=== PATIENT | female | born 1980 | race African-American/Black ===

== ENCOUNTER → 2019-01-29 | Outpatient (CLI) | payer BC ==
--- NOTE | 2019-01-29 15:26 | Diagnostic Imaging Report ---
PATIENT HISTORY: PAIN OF LEFT HEEL. TECHNIQUE: Two views of the left calcaneus. COMPARISON: None. FINDINGS: There is a small plantar calcaneal enthesophyte. No acute fracture is seen in the calcaneus. No erosive changes are seen. Joint spaces are preserved and alignment appears normal. IMPRESSION: Small plantar calcaneal enthesophyte. Dictated by: Dictated on workstation # [id number]
== END ==
LOC: RAD 11:15
PROVIDERS: ATTEND Pediatrics
DX: M77.32 Calcaneal spur, left foot (principal)
CPT/HCPCS: 73650

== ENCOUNTER 2019-08-13 17:21 | Emergency (ER) | payer SELFPAY ==
[~2019-08-13] VITALS: Ht 165 cm; Wt 68.4 kg
[2019-08-13] MEDS ORDERED: ONDANSETRON 4 MG/2 ML (SDV) Z0FRAN ONE (17:27)
[2019-08-13] MEDS ORDERED: NS IV 1000 ML 1,000 ML ONE (17:27)
--- OUTSIDE RECORDS SUMMARY | 2019-08-13 17:27 | XMS REPORT | Continuity of Care Document ---
Author Organization Unknown Address Unknown Phone Unavailable Allergies There is no data. Medications There is no data. Problems Date Dx Coded Attending Type Code Diagnosis Diagnosed By 02/03/2019 DOMONIQUE TAPIA MD, Ot M77.32 CALCANEAL SPUR, LEFT FOOT 02/10/2019 DOMONIQUE TAPIA MD, Ot M77.32 CALCANEAL SPUR, LEFT FOOT 02/17/2019 DOMONIQUE TAPIA MD, Ot M77.32 CALCANEAL SPUR, LEFT FOOT Procedures There is no data. Results Test Result Range CMP - 07/17/18 09:20 GLUCOSE 82 mg/dL 65-99 UREA NITROGEN (BUN) 16 mg/dL 7-25 CREATININE 0.96 mg/dL 0.50-1.10 eGFR NON-AFR. BAHAMIAN 76 mL/min/1.73m2 > OR = 60 eGFR 88 mL/min/1.73m2 > OR = 60 BUN/CREATININE RATIO NOT APPLICABLE (calc) 6-22 SODIUM 137 mmol/L 135-146 POTASSIUM 4.4 mmol/L 3.5-5.3 CHLORIDE 104 mmol/L 98-110 CARBON DIOXIDE 25 mmol/L 20-32 CALCIUM 9.6 mg/dL 8.6-10.2 PROTEIN, TOTAL 6.8 g/dL 6.1-8.1 ALBUMIN 4.6 g/dL 3.6-5.1 GLOBULIN 2.2 g/dL (calc) 1.9-3.7 ALBUMIN/GLOBULIN RATIO 2.1 (calc) 1.0-2. 5 BILIRUBIN, TOTAL 0.5 mg/dL 0.2-1.2 ALKALINE PHOSPHATASE 51 U/L 33-115 AST 15 U/L 10-30 ALT 16 U/L 6-29 CBC - 07/17/18 09:20 WHITE BLOOD CELL COUNT 6.6 Thousand/uL 3 .8-10.8 RED BLOOD CELL COUNT 4.62 Million/uL 3.8 0-5.10 HEMOGLOBIN 13.4 g/dL 11.7-15.5 HEMATOCRIT 41.6 % 35.0-45.0 MCV 90.0 fL 80.0-100.0 MCH 29.0 pg 27.0-33.0 MCHC 32.2 g/dL 32.0-36.0 RDW 12.5 % 11.0-15.0 PLATELET COUNT 298 Thousand/uL 140-400 MPV 11.7 fL 7.5-12.5 ABSOLUTE NEUTROPHILS 4554 cells/uL 1500- 7800 ABSOLUTE LYMPHOCYTES 1472 cells/uL 850-3 900 ABSOLUTE MONOCYTES 429 cells/uL 200-950 ABSOLUTE EOSINOPHILS 112 cells/uL 15-500 ABSOLUTE BASOPHILS 33 cells/uL 0-200 NEUTROPHILS 69 % NRG LYMPHOCYTES 22.3 % NRG MONOCYTES 6.5 % NRG EOSINOPHILS 1.7 % NRG BASOPHILS 0.5 % NRG LIPID PANEL - 10/13/18 11:33 CHOLESTEROL, TOTAL 182 mg/dL <200 HDL CHOLESTEROL 65 mg/dL >50 TRIGLYCERIDES 175 mg/dL <150 LDL-CHOLESTEROL 90 mg/dL (calc) NRG CHOL/HDLC RATIO 2.8 (calc) <5.0 NON HDL CHOLESTEROL 117 mg/dL (calc) <13 0 GLUCOSE, SERUM - 10/13/18 11:33 GLUCOSE 87 mg/dL 65-99 HCG, QUAL REFLEX TO QUANT - 07/23/19 13: 47 HCG, TOTAL, QL POSITIVE See Note: [employer] PAP RFX HPV mRNA E6/E7 - 16:00 CLINICAL INFORMATION: NRG LMP: 06/14/19 NRG PREV. PAP: NRG PREV. BX: NRG SOURCE: Cervix NR STATEMENT OF ADEQUACY: NR INTERPRETATION/RESULT: [facility] DATA CENTER TECHNICIAN: NRG COMMENT NRG ANTIBODY SCREEN - 07/27/19 16:07 ANTIBODY SCREEN, RBC W/REFL ID, TITER AND AG NO ANTIBODIES DETECTED NRG SYPHILIS (RPR W/ REFLEX CONFIRMATION) - 07/27/19 16:07 RPR (DX) W/REFL TITER AND CONFIRMATORY TESTING NON-REACTIVE NON-REACTIVE HEP B SURFACE ANTIGEN - 07/27/19 16:07 HEPATITIS B SURFACE ANTIGEN NON-REACTIVE NON-REACTIVE HCG, QUANTITATIVE - 07/27/19 16:07 HCG, TOTAL, QN [id number] mIU/mL NRG RUBELLA IMMUNE STATUS - 07/27/19 16:07 RUBELLA ANTIBODY (IGG) 2.75 index NRG CULTURE, URINE - 07/27/19 16:07 CULTURE, URINE, ROUTINE SEE NOTE NRG Encounters ACCT No. Visit Date/Time Discharge Status Pt. Type Provider Facility Loc./Unit Complaint [id number] 07/23/2019 13:40:00 07/23/2019 23:59:5 9 [facility] [id number] 07/27/2019 15:15:00 Document Registration [id number] 07/23/2019 13:40:00 Document Registration [id number] 10/13/2018 17:45:00 Document Registration [id number] 07/17/2018 08:20:00 Document Registration [id number] 01/29/2019 11:15:00 23:59:59 CLS Outpatient REGINA JORDAN, DOMONIQUE perkins [facility] RAD PAIN LEFT HEEL [id number] 08/13/2019 17:23:[address] Emergency LYN OVALLES DO [facility] ER FS VOMITING
[2019-08-13] MEDS ORDERED: ONDANSETRON 4 MG/2 ML (SDV) Z0FRAN IVP ONE ×3 (17:45→19:30)
[2019-08-13] MEDS ORDERED: NS IV 1000 ML 1,000 ML IV ONE ×3 (17:45→19:30)
--- NOTE | 2019-08-13 17:56 | ED Abdominal Pain ---
General Chief Complaint: Abdominal/GI Problems Stated Complaint: VOMITING Nursing Triage Note: PT REPORTS SHE IS 7 WEEKS WITH NAUSEA AND VOMITNG FOR 2 DAYS. SHE REPORTS THIS IS HER 6TH AND THIS IS NORMAL FOR HER WHEN SHE IS . Sepsis Screen: No Definite Risk Source of Information: Patient Exam Limitations: No Limitations History of Present Illness Date Seen by Provider: Aug 13, 2019 Time Seen by Provider: 17:31 Initial Comments 39-year-old 6 para 5 female presents with 2 days of nausea and vomiting. Patient states that she is 7 weeks and that she always becomes sick with hyperemesis gravidarum at this time. Patient states she's not been able to keep any liquids down for almost 2 days and is dehydrated. She has given informed consent for diagnostic and therapeutic services. Patient has been treated with Zofran in the past without any complications. IV hydration has been started and laboratory assessment has been started. Patient denies any history of cardiac pulmonary GI or renal disease with the exception of nausea consistent with hyperemesis gravidarum during the beginnings of every . Patient's physician is Dr. Tapia. She denies any fevers shortness of breath uncontrolled coughing or any signs of coronavirus. She denies being around anyone who is sick and has not traveled out of the state. Patient reports Dr. Osman was able to see the but could not hear the heart tones last week she has an appointment on August 25 for further obstetrical evaluation and care. Should be noted that this dictation utilizes [employer] software. Efforts are being made to review and correct any errors. Some errors or able to penetrate the review process. This is not an intentional event. If there are any questions regarding this dictation please contact Lyn Pabon DO Timing/Duration: 1-2 Days Severity/Quality: Moderate Location: Epigastric, Generalized Abdomen (patient reports that the previous 5 pregnancies of all had the same episodes of hyperemesis gravidarum and she requires intravenous fluids), Suprapubic Radiation: Epigastric, Periumbilical Activities at Onset: Activity, Emotional Stress Modifying Factors: Improves With Movement, Improves With Resting, Improves With Urinating Associated Symptoms: Back Pain, Fatigue, Nausea/Vomiting, Weakness Allergies and Home Medications Allergies Coded Allergies: No Known Drug Allergies (Unverified , 08/13/19) Patient Home Medication List Home Medication List Reviewed: Yes Review of Systems Review of Systems Constitutional: dizziness, malaise, weakness, other (symptoms of hyperemesis gravidarum) EENTM: No Symptoms Reported, Other (dry mouth) Respiratory: No Symptoms Reported, Other (nauseated and dry mouth unable to keep any fluids down) Cardiovascular: No Symptoms Reported, Lightheadedness (from dehydration) Gastrointestinal: Nausea, Vomiting, Other (patient reports her 5 pregnancies previously of all had hyperemesis gravidarum and she has had to be admitted to the hospital for fluids with couple pregnancies in the past) Genitourinary: No Symptoms Reported (no cramping no bloody discharge no vaginal discharge patient reports Dr. Osman was able to auscultate the heart tones this past week) Musculoskeletal: back pain, other (weakness from dehydration) Skin: no symptoms reported Psychiatric/Neurological: Anxiety, Weakness Endocrine: No Symptoms Reported Hematologic/Lymphatic: No Symptoms Reported Past Tzescrk-Tvsslj-Ueyoay Hx Past Med/Social Hx: Reviewed Nursing Past Med/Soc Hx Patient Social History Alcohol Use: Denies Use Recreational Drug Use: No Smoking Status: Never a Smoker 2nd Hand Smoke Exposure: No Recent Foreign Travel: No Contact w/Someone Who Travel: No Recent Infectious Disease Expo: No Recent Hopitalizations: No Physical Abuse: No Sexual Abuse: No Mistreated: No Fear: No Seasonal Allergies Seasonal Allergies: No Past Medical History Surgeries: No Respiratory: No Cardiac: No Neurological: No Hx : 6 Hx Para: 6 Hx Total # of Abortions (Sp): 0 Sexually Transmitted Disease: No HIV/AIDS: No Genitourinary: No Gastrointestinal: No Musculoskeletal: No Endocrine: No HEENT: No Cancer: No Psychosocial: No Integumentary: No Blood Disorders: No Physical Exam Vital Signs Vital Signs - First Documented 08/13/19 17:38 Temp 36.3 Pulse 102 Resp 18 B/P (MAP) 114/82 (93) Pulse Ox 99 O2 Delivery Room Air Capillary Refill : Less Than 3 Seconds Height/Weight/BMI Height: '" Weight: lbs. oz. kg; 25.00 BMI Method: General Appearance: WD/WN, moderate distress (secondary to nausea and vomiting from hyperemesis gravidarum) HEENT: PERRL/EOMI, normal ENT inspection, pharynx normal Neck: non-tender, full range of motion, supple, normal inspection Respiratory: chest non-tender, lungs clear, normal breath sounds, no respiratory distress, no accessory muscle use Cardiovascular: normal peripheral pulses, regular rate, rhythm, no edema, no gallop, no JVD, no murmur Peripheral Pulses: 2+ Carotid (R), 2+ Carotid (L), 2+ Radial Pulses (R), 2+ Radial Pulses (L) Gastrointestinal: normal bowel sounds, non tender, soft, no organomegaly, no pulsatile mass (we were not able to auscultate heart tones with the emergency room Doppler) Extremities: normal range of motion, non-tender, normal inspection, no pedal e sukhi, no calf tenderness, normal capillary refill, other (patient is weak from dehydration) Back: normal inspection, no CVA tenderness, no vertebral tenderness Neurologic/Psychiatric: motor polarizer II-XII nml as tested, no motor/sensory deficits, alert, normal mood/affect, oriented x 3, other (weakness from dehydration) Skin: normal color, warm/dry Lymphatic: no adenopathy Progress/Results/Core Measures Results/Orders Lab Results Laboratory Tests Test 08/13/19 17:45 08/13/19 18:43 Range/Units White Blood Count 9.1 4.3-11.0 10^3/uL Red Blood Count 5.09 4.35-5.85 10^6/uL Hemoglobin 14.7 11.5-16.0 G/DL Hematocrit 42 35-52 % Mean Corpuscular Volume 83 80-99 FL Mean Corpuscular Hemoglobin 29 25-34 PG Mean Corpuscular Hemoglobin Concent 35 32-36 G/DL Red Cell Distribution Width 12.4 10.0-14.5 % Platelet Count 330 130-400 10^3/uL Mean Platelet Volume 11.0 H 7.4-10.4 FL Neutrophils (%) (Auto) 84 H 42-75 % Lymphocytes (%) (Auto) 11 L 12-44 % Monocytes (%) (Auto) 5 0-12 % Eosinophils (%) (Auto) 0 0-10 % Basophils (%) (Auto) 0 0-10 % Neutrophils # (Auto) 7.7 1.8-7.8 X 10^3 Lymphocytes # (Auto) 1.0 1.0-4.0 X 10^3 Monocytes # (Auto) 0.4 0.0-1.0 X 10^3 Eosinophils # (Auto) 0.0 0.0-0.3 10^3/uL Basophils # (Auto) 0.0 0.0-0.1 10^3/uL Neutrophils % (Manual) 85 % Lymphocytes % (Manual) 9 % Monocytes % (Manual) 6 % Eosinophils % (Manual) 0 % Basophils % (Manual) 0 % Band Neutrophils 0 % Blood Morphology Comment NORMAL Sodium Level 136 135-145 MMOL/L Potassium Level 4.2 3.6-5.0 MMOL/L Chloride Level 100 98-107 MMOL/L Carbon Dioxide Level 19 L 21-32 MMOL/L Anion Gap 17 H 5-14 MMOL/L Blood Urea Nitrogen 10 7-18 MG/DL Creatinine 0.80 0.60-1.30 MG/DL Estimat Glomerular Filtration Rate > 60 BUN/Creatinine Ratio 13 Glucose Level 97 70-105 MG/DL Calcium Level 10.0 8.5-10.1 MG/DL Corrected Calcium 9.8 8.5-10.1 MG/DL Total Bilirubin 0.6 0.1-1.0 MG/DL Aspartate Amino Transf (AST/SGOT) 20 5-34 U/L Alanine Aminotransferase (ALT/SGPT) 21 0-55 U/L Alkaline Phosphatase 57 40-136 U/L Total Protein 7.7 6.4-8.2 GM/DL Albumin 4.3 3.2-4.5 GM/DL Lipase 20 8-78 U/L Serum Test, Qualitative POSITIVE NEGATIVE Urine Color JORDAN H Urine Clarity SL CLOUDY Urine pH 6.0 5-9 Urine Specific [place] >=1.030 1.016-1.022 Urine Protein TRACE H NEGATIVE Urine Glucose (UA) NEGATIVE NEGATIVE Urine Ketones 3+ H NEGATIVE Urine Nitrite NEGATIVE NEGATIVE Urine Bilirubin 1+ H NEGATIVE Urine Urobilinogen 1.0 < = 1.0 MG/DL Urine Leukocyte Esterase NEGATIVE NEGATIVE Urine RBC (Auto) NEGATIVE NEGATIVE Urine RBC 2-5 H /HPF Urine WBC 5-10 H /HPF Urine Squamous Epithelial Cells 10-25 H /HPF Urine Crystals NONE /LPF Urine Bacteria TRACE /HPF Urine Casts NONE /LPF Urine Mucus LARGE H /LPF Urine Culture Indicated NO Urine Opiates Screen NEGATIVE NEGATIVE Urine Oxycodone Screen NEGATIVE NEGATIVE Urine Methadone Screen NEGATIVE NEGATIVE Urine Propoxyphene Screen NEGATIVE NEGATIVE Urine Barbiturates Screen NEGATIVE NEGATIVE Ur Tricyclic Antidepressants Screen NEGATIVE NEGATIVE Urine Phencyclidine Screen NEGATIVE NEGATIVE Urine Amphetamines Screen NEGATIVE NEGATIVE Urine Methamphetamines Screen NEGATIVE NEGATIVE Urine Benzodiazepines Screen NEGATIVE NEGATIVE Urine Cocaine Screen NEGATIVE NEGATIVE Urine Cannabinoids Screen NEGATIVE NEGATIVE My Orders Orders - LYN PABON DO Ondansetron Injection (Zofran Injectio (08/13/19 17:27) Ns Iv 1000 Ml (Sodium Chloride 0.9%) (08/13/19 17:27) Cbc And Manual Diff (08/13/19 17:43) Comprehensive Metabolic Panel (08/13/19 17:43) Urinalysis (08/13/19 17:43) Drug Screen Stat (Urine) (08/13/19 17:43) Influenza A And B Antigens (08/13/19 17:43) Ns Iv 1000 Ml (Sodium Chloride 0.9%) (08/13/19 17:45) Ondansetron Injection (Zofran Injectio (08/13/19 17:45) Lipase (08/13/19 17:43) Hcg,Qualitative Serum (08/13/19 18:06) Hcg,Quantitative (08/13/19 18:42) Ua Culture If Indicated (08/13/19 19:04) Ondansetron Injection (Zofran Injectio (08/13/19 19:30) Ns Iv 500 Ml (Sodium Chloride 0.9%) (08/13/19 19:30) Ondansetron Injection (Zofran Injectio (08/13/19 19:30) Ns Iv 1000 Ml (Sodium Chloride 0.9%) (08/13/19 19:30) Ns Iv 1000 Ml (Sodium Chloride 0.9%) (08/13/19 19:25) Vital Signs/I&O 08/13/19 17:38 Temp 36.3 Pulse 102 Resp 18 B/P (MAP) 114/82 (93) Pulse Ox 99 O2 Delivery Room Air Blood Pressure Mean: 93 Progress Progress Note : Time: 19:03 Progress Note Laboratory evaluation reveals a hemoglobin of 14.7 white count of 9.1 creatinine 0.8 lipase 20. He is test is positive and we are still waiting for UDS urinalysis and quantitative hCG. She will follow up with Dr. Osman for continued [employer] care. She has an appointment in approximately one week. She will also follow-up with Dr. Tapia for continued primary care services. With the patient's past history of severe hyperemesis gravidarum and required IV hydration she may need to have more services and home health may be an option in regard to keeping her well-hydrated. Departure Impression Primary Impression: Hyperemesis arising during Additional Impressions: Dehydration Qualified Codes: Z3A.01 - Less than 8 weeks gestation of Disposition: HOME, SELF-CARE Condition: Improved (ERASED) Departure-Patient Inst. Decision time for Depature: 19:48 Referrals: DOMONIQUE TAPIA MD (PCP/Family) Primary Care Physician LANDON OSMAN DO Patient Instructions: Dehydration, Adult (DC), Hyperemesis Gravidarum, Nausea and Vomiting of (DC) Add. Discharge Instructions: Patient presents with dehydration hyperemesis gravidarum and intrauterine at 7 weeks. Patient's hCG was 77,000 a week ago and today it is 241,658 hemoglobin is 14.7 white count is 9.1 creatinine 0.8 lipase 20. Patient understands she should follow-up with Dr. Tapia for primary care service and Dr. Landon Osman for OB services. She has been encouraged to gradually hydrate orally with 4-6 ounces of clear liquids and/or chicken soup intermittently every hour and soda crackers as tolerated. Patient should not try to eat full meals and s hould avoid caffeine products. She has Zofran at home from Dr. Osman. Patient understands that she may need to be admitted to the hospital if she has intractable vomiting and cannot hydrate as she had with her fourth and fifth pregnancies. Patient did receive 1.5 L of normal saline during the emergency room evaluation she also received Zofran 4 mg IV twice for a total of 8 mg. All discharge instructions reviewed with patient and/or family. Voiced understanding. Copy Copies To 1: DOMONIQUE TAPIA MD; LANDON OSMAN ANTHONY H DO Aug 13, 2019 17:55
[2019-08-13 18:19] LABS: ALANINE AMINOTRANSFERASE 21 U/L (0-55); ALBUMIN 4.3 GM/DL (3.2-4.5); ALKALINE PHOSPHATASE 57 U/L (40-136); BILIRUBIN,TOTAL 0.6 MG/DL (0.1-1.0); BUN/CREATININE RATIO 13; CARBON DIOXIDE 19 MMOL/L (21-32); CHLORIDE 100 MMOL/L (98-107); GFR ESTIMATED > 60; GLUCOSE 97 MG/DL (70-105); LIPASE 20 U/L (8-78); POTASSIUM 4.2 MMOL/L (3.6-5.0); SODIUM 136 MMOL/L (135-145); TOTAL PROTEIN 7.7 GM/DL (6.4-8.2)
[2019-08-13 18:20] LABS: BASOPHILS % (AUTO) 0 % (0-10); EOSINOPHILS % (AUTO) 0 % (0-10); HEMATOCRIT 42 % (35-52); HEMOGLOBIN 14.7 G/DL (11.5-16.0); LYMPHOCYTES % (AUTO) 11 % (12-44); MEAN CORPUSCULAR HEMOGLOBIN 29 PG (25-34); MEAN CORPUSCULAR HGB CONC 35 G/DL (32-36); MEAN CORPUSCULAR VOLUME 83 FL (80-99); MONOCYTES % (AUTO) 5 % (0-12); NEUTROPHILS % (AUTO) 84 % (42-75); PLATELET COUNT 330 10^3/uL (130-400); RED CELL DISTRIBUTION WIDTH 12.4 % (10.0-14.5); WHITE BLOOD COUNT 9.1 10^3/uL (4.3-11.0)
[2019-08-13 18:21] LABS: MONOCYTES # (AUTO) 0.4 X 10^3 (0.0-1.0); NEUTROPHILS # (AUTO) 7.7 X 10^3 (1.8-7.8)
[2019-08-13 18:29] LABS: BAND NEUTROPHILS 0 %; BASOPHILS % (MANUAL) 0 %; EOSINOPHILS % (MANUAL) 0 %; LYMPHOCYTES % (MANUAL) 9 %; MONOCYTES % (MANUAL) 6 %; NEUTROPHILS % (MANUAL) 85 %; RBC MORPH NORMAL
[2019-08-13 19:08] LABS: AMPHETAMINE SCREEN, URINE NEGATIVE (NEGATIVE); BARBITURATE SCREEN URINE NEGATIVE (NEGATIVE); BENZODIAZEPINES SCREEN URINE NEGATIVE (NEGATIVE); CANNABINOID SCREEN, URINE NEGATIVE (NEGATIVE); COCAINE SCREEN URINE NEGATIVE (NEGATIVE); COLOR,URINE AMBER; METHADONE STAT NEGATIVE (NEGATIVE); METHAMPHETAMINE SCREEN URINE S NEGATIVE (NEGATIVE); OPIATE SCREEN URINE NEGATIVE (NEGATIVE); OXYCODONE STAT NEGATIVE (NEGATIVE); PROPOXYPHENE STAT NEGATIVE (NEGATIVE); TRICYCLIC ANTIDEPRESSANTS SCRE NEGATIVE (NEGATIVE)
[2019-08-13 19:09] LABS: BACTERIA,URINE TRACE /HPF; BILIRUBIN,URINE 1+ (NEGATIVE); GLUCOSE, URINE (UA) NEGATIVE (NEGATIVE); KETONES,URINE 3+ (NEGATIVE); LEUKOCYTE ESTERASE ,URINE NEGATIVE (NEGATIVE); NITRITE,URINE NEGATIVE (NEGATIVE); PROTEIN,URINE TRACE (NEGATIVE)
[2019-08-13 19:10] LABS: CLARITY,URINE SL CLOUDY
[2019-08-13] MEDS ORDERED: NS IV 500 ML 500 ML IV SCH (19:30)
[2019-08-13 20:00] VITALS: BP 115/63
== END 2019-08-13 20:00 | disposition home or self-care (01) ==
LOC: EDUNIT# 17:21 → ER FS 17:23
DX: O99.89 Other specified diseases and conditions complicating pregnancy, childbirth and the puerperium (principal); R11.10 Vomiting, unspecified; O99.281 Endocrine, nutritional and metabolic diseases complicating pregnancy, first trimester; E86.0 Dehydration; Z3A.01 Less than 8 weeks gestation of pregnancy
CPT/HCPCS: 36415; 80053; 80306; 81000; 83690; 84702; 84703; 85007; 85027

== ENCOUNTER → 2020-02-24 | Outpatient (CLI) | payer SELFPAY | LOC: LABNPT 16:16 | PROVIDERS: ATTEND Family Medicine | DX: Z34.83 Encounter for supervision of other normal pregnancy, third trimester (principal); Z3A.00 Weeks of gestation of pregnancy not specified | CPT/HCPCS: 87081 ==

== ENCOUNTER → 2020-03-15 | Outpatient (CLI) | payer MEDICAID ==
[~2020-03-15] MED LIST: IBUP-844 PO; PNV1TABL9 PO
== END ==
LOC: LAB FS 10:10
PROVIDERS: ATTEND Family Medicine
DX: Z01.812 Encounter for preprocedural laboratory examination (principal); Z20.828 Contact with and (suspected) exposure to other viral communicable diseases
CPT/HCPCS: 87635

== ENCOUNTER 2020-03-17 02:05 | Inpatient (IN) | payer MEDICAID ==
[~2020-03-17] VITALS: Ht 65 cm; Wt 82.3 kg
[2020-03-17] VITALS (52 sets, daily range): BP systolic 80–161; BP diastolic 45–95
[2020-03-17] MEDS ORDERED: OXYTOCIN PRE-MIX DRIP 500 ML IV SCH ×2 (06:20→12:02)
[2020-03-17] MEDS ORDERED: AMPICILLIN FOR IV USE 2,000 MG in WATER (STERILE) FOR INJECTION 14.8 ML IV SCH (06:20)
--- NOTE | 2020-03-17 06:20 | NUR ---
NICKY ACOSTA presented to unit via ambulation from ED, accompanied by S.O, with c/o INDUCTION. NICKY ACOSTA weighed, gowned, voided, and to bed. EFHM and TOCO applied, VS taken. NICKY ACOSTA oriented to bed controls, call light, TV, heat, and A/C controls.
[2020-03-17] MEDS ORDERED: MINERAL OIL CONCENTRATE 99.9% 15 ML UDC TOP PRN (06:30)
[2020-03-17] MEDS: D5 LR IV SOLUTION 1,000 ML IV SCH ×2 (07:01→12:19)
[2020-03-17 07:05] LABS: BILIRUBIN,URINE NEGATIVE (NEGATIVE); CLARITY,URINE SL CLOUDY; COLOR,URINE YELLOW; GLUCOSE, URINE (UA) NEGATIVE (NEGATIVE); KETONES,URINE NEGATIVE (NEGATIVE); LEUKOCYTE ESTERASE ,URINE TRACE (NEGATIVE); NITRITE,URINE NEGATIVE (NEGATIVE); PH,URINE 6.5 (5-9); PROTEIN,URINE NEGATIVE (NEGATIVE)
[2020-03-17 07:07] LABS: BASOPHILS % (AUTO) 0 % (0-10); EOSINOPHILS # (AUTO) 0.1 10^3/uL (0.0-0.3); EOSINOPHILS % (AUTO) 1 % (0-10); HEMATOCRIT 37 % (35-52); HEMOGLOBIN 12.3 g/dL (11.5-16.0); LYMPHOCYTES # (AUTO) 0.9 10^3/uL (1.0-4.0); LYMPHOCYTES % (AUTO) 13 % (12-44); MEAN CORPUSCULAR HEMOGLOBIN 30 pg (25-34); MEAN CORPUSCULAR HGB CONC 33 g/dL (32-36); MEAN CORPUSCULAR VOLUME 90 fL (80-99); MEAN PLATELET VOLUME 11.7 fL (9.0-12.2); MONOCYTES # (AUTO) 0.5 10^3/uL (0.0-1.0); MONOCYTES % (AUTO) 7 % (0-12); NEUTROPHILS # (AUTO) 5.5 10^3/uL (1.8-7.8); NEUTROPHILS % (AUTO) 79 % (42-75); PLATELET COUNT 222 10^3/uL (130-400)
[2020-03-17] MEDS ORDERED: PNV1TABL9 PO (07:13)
[2020-03-17 07:14] LABS: BACTERIA,URINE MODERATE /HPF
[2020-03-17] MEDS ORDERED: fentaNYL 2 mcg/ml BUPIVA 0.125 100 ML ONE (10:23)
[2020-03-17] MEDS ORDERED: CITRIC ACID/SOB CIT (BICITRA) 30 ML UDC ONE (10:33)
[2020-03-17] MEDS ORDERED: CITRIC ACID/SOB CIT (BICITRA) 30 ML UDC PO ONE (10:39)
[2020-03-17] MEDS: AMPICILLIN FOR IV USE 1,000 MG in WATER (STERILE) FOR INJECTION 7.4 ML IV SCH ×2 (10:45→14:54)
[2020-03-17] MEDS ORDERED: BUPIVACAINE 0.25% 30 ML (SENSORCAINE) VIAL ONE (11:11)
[2020-03-17] MEDS ORDERED: fentaNYL INJECTION 100 MCG/2 ML AMP ONE (11:12)
--- NOTE | 2020-03-17 11:44 | History & Physical-OB ---
OB - Chief Complaint & HPI Date/Time Date of Admission: Date of Admission: Mar 17, 2020 at 06:14 Date seen by a Provider: Mar 17, 2020 Time Seen by a Provider: 11:40 Chief Complaint/History OB-Reason for Admission/Chief: Induction of Labor Hx : 6 Hx Para: 5 Expected Date of Delivery: Mar 23, 2020 Gestational Age in Weeks: 39 Gestational Age in Days: 1 Indication for induction: maternal discomfort Allergies and Home Medications Allergies Coded Allergies: No Known Drug Allergies (Unverified , 03/17/20) Home Medications Pnv Cmb#21/Iron/Folic Acid 1 Each Tablet, 1 EACH PO DAILY, (Reported) Patient Home Medication List Home Medication List Reviewed: Yes OB - History Hx of Present Care: Yes Ultrasounds: Normal mid trimester US Obstetrical Complications: None Medical Complications: None Patient Past Medical History previously healthy Social History/Family History HIV/AIDS: No Recent Infectious Disease Expo: No Sexually Transmitted Disease: No Alcohol Use: Denies Use Recreational Drug Use: No 2nd Hand Smoke Exposure: No OB - Admission Exam Physical Exam Vitals: Vital Signs 03/17/20 03/17/20 08:00 09:30 Temp 36.6 Pulse 82 Resp 16 B/P (MAP) 108/58 (75) Pulse Ox 98 O2 Delivery Room Air HEENT: NCAT Heart: Rhythm Normal Lungs: Clear Abdomen: Gravid Extremities: Normal Reflexes: Normal Cervical Dilatation: 5cm Effacement: 100% Station: -1 Membranes: Ruptured Amniotic Fluid: Clear Heart Rate: 130's Accelerations: Accelerations Present Decelerations: Variable Decelerations Short Term Variability: Present Assisted Variability: Average (6-25) Contractions on Admission: None Labs Laboratory Tests Test 03/17/20 06:50 Range/Units White Blood Count 7.0 4.3-11.0 10^3/uL Red Blood Count 4.10 3.80-5.11 10^6/uL Hemoglobin 12.3 11.5-16.0 g/dL Hematocrit 37 35-52 % Mean Corpuscular Volume 90 80-99 fL Mean Corpuscular Hemoglobin 30 25-34 pg Mean Corpuscular Hemoglobin Concent 33 32-36 g/dL Red Cell Distribution Width 12.9 10.0-14.5 % Platelet Count 222 130-400 10^3/uL Mean Platelet Volume 11.7 9.0-12.2 fL Immature Granulocyte % (Auto) 0 % Neutrophils (%) (Auto) 79 H 42-75 % Lymphocytes (%) (Auto) 13 12-44 % Monocytes (%) (Auto) 7 0-12 % Eosinophils (%) (Auto) 1 0-10 % Basophils (%) (Auto) 0 0-10 % Neutrophils # (Auto) 5.5 1.8-7.8 10^3/uL Lymphocytes # (Auto) 0.9 L 1.0-4.0 10^3/uL Monocytes # (Auto) 0.5 0.0-1.0 10^3/uL Eosinophils # (Auto) 0.1 0.0-0.3 10^3/uL Basophils # (Auto) 0.0 0.0-0.1 10^3/uL Immature Granulocyte # (Auto) 0.0 0.0-0.1 10^3/uL Urine Color YELLOW Urine Clarity SL CLOUDY Urine pH 6.5 5-9 Urine Specific [place] 1.020 1.016-1.022 Urine Protein NEGATIVE NEGATIVE Urine Glucose (UA) NEGATIVE NEGATIVE Urine Ketones NEGATIVE NEGATIVE Urine Nitrite NEGATIVE NEGATIVE Urine Bilirubin NEGATIVE NEGATIVE Urine Urobilinogen 1.0 < = 1.0 MG/DL Urine Leukocyte Esterase TRACE H NEGATIVE Urine RBC (Auto) NEGATIVE NEGATIVE Urine RBC NONE /HPF Urine WBC 2-5 /HPF Urine Squamous Epithelial Cells 10-25 H /HPF Urine Crystals NONE /LPF Urine Bacteria MODERATE H /HPF Urine Casts NONE /LPF Urine Mucus NEGATIVE /LPF Urine Culture Indicated YES OB - Assessment/Plan/Diagnosis Assessment Assessment: induction of labor Admission Dx Induction of labor at 39 1/7 wga. GBS positive. Admission Status: Inpatient Order (span 2 midnights) Reason for Inpatient Admission: Induction. Plan Induction Method: per Pitocin Protocol Other Plan Pitocin. AROM. Amp for GBS. Turn down pit to help with variables. Epidural for pain. CECE PETERSON MD Mar 17, 2020 11:44
[2020-03-17] MEDS ORDERED: LACTATED RINGERS 1,000 ML IV SCH (12:01)
[2020-03-17] MEDS ORDERED: IBUP-844 PO (12:05)
--- NOTE | 2020-03-17 12:06 | Discharge Summary ---
Discharge Inst-[facility] Reconcile Patient Problems Problems Reviewed?: Yes Follow Up/Instructions Goal/Follow Up: [address] Peterson Activity Activity: Activity as Tolerated Driving Instructions: You May Drive NO SMOKING: NO SMOKING Nothing Inside Vagina: No Douching, No [place], No Tampons Diet Discharge Diet: No Restrictions Symptoms to Report to : Fever Over 101 Degrees F, Vaginal Bleeding Increase For Any Problems or Questions: Contact Your Physician CECE PETERSON MD Mar 17, 2020 12:06
[2020-03-17] MEDS: EPIDURAL (fentaNYL 2 MCG/ML BUPIVA 0.125%)100 ML BAG EPI PRN ×2 (12:07→13:58)
[2020-03-17] MEDS ORDERED: WITCH HAZEL(TUCKS) 40 EA JAR TOP PRN (12:15)
[2020-03-17] MEDS ORDERED: METOCLOPRAMIDE INJ 10 MG/2 ML (REGLAN) IV PRN (12:15)
[2020-03-17] MEDS ORDERED: NALOXONE 0.4 MG/ML 1 ML (NARCAN) VIAL IV PRN ×2 (12:15)
[2020-03-17] MEDS ORDERED: BENZOCAINE/MENTHOL (DERMOPLAST) 60 ML CAN TP PRN (12:15)
[2020-03-17] MEDS ORDERED: TETANUS,DIPTH,PERTUSS P/F (BOOSTRIX) 0.5 ML VIAL IM ONE (12:15)
[2020-03-17] MEDS ORDERED: ONDANSETRON 4 MG/2 ML (SDV) Z0FRAN IV PRN (12:15)
[2020-03-17] MEDS ORDERED: diphenhydrAMINE 50 MG/ML INJ (BENADRYL) IV PRN (12:15)
[2020-03-17] MEDS ORDERED: MEASLES,MUMPS,RUBELLA 1 EA INJ SQ ONE (12:15)
[2020-03-17] MEDS: ACETAMINOPHEN 500 MG TAB (TYLENOL) PO SCH ×2 (14:49→16:41)
[2020-03-17] MEDS: IBUPROFEN 600 MG (MOTRIN) TAB PO SCH ×3 (14:49→22:47)
--- NOTE | 2020-03-17 15:12 | NUR ---
Spontaneous vaginal delivery of placenta with cord. fundal massage per dr taylor. perineum examined with no tears noted per dr taylor. plan of care reviewed with pt. 1515 ffu/0 with lt rubra noted, no clots expressed. pericare and pad on. pt assisted from lithotomy position to sf position. vss.
--- NOTE | 2020-03-17 15:20 | OB Labor & Delivery Record ---
Vag Delivery Note Vag Delivery Note Date of Delivery: 03/17/20 Preoperative Diagnosis: Jessica Dye is a (39 /Para 6 / 5,Gestational Age (wks)39with [1 day] Postoperative Diagnosis: Same Surgeon: CECE PETERSON Mortgage Or Loan Underwriter: [none] Anesthesia: [epidural] Delivery Type: [] Findings: [] Viable [female] infant, apgars [8/9], weight [8 pounds 4 ounces] Lacerations: Intact placenta with 3 vessel cord. One loose nuchal reduced after delivery. Estimated Blood Loss: [100] ml Complications: None Condition: Stable Description of Procedure: The patient is a 39 year old female who presented [for induction]. She was admitted and informed consent was obtained. Her labor course was remarkable for [nothing] She progressed to complete dilatation and began to push. She was then set up for delivery. The infant's head was delivered atraumatically in the [OA] position. The shoulders and remainder of the 's body were then delivered without difficulty. Upon delivery, the head was held below the level of the perineum and the mouth and nares were bulb suctioned. The cord was doubly clamped and cut after 60 seconds by father of baby on maternal abdomen. An intact placenta with 3-vessel cord delivered via Jeevan and there was found to be minimal bleeding.~ Vigorous fundal massage was performed and the fundus was found to be firm. IV oxytocin was given. Examination of the vagina and perineum revealed no lacerations. Following the repair, sponge, instrument and needle counts were correct. Mom and baby were both in stable condition in the labor suite. Vitals - Labs Vital Signs - I&O Vital Signs Date Time Temp Pulse Resp B/P (MAP) Pulse Ox O2 Delivery O2 Flow Rate FiO2 03/17/20 14:00 81 18 119/59 (79) 100 Room Air 03/17/20 13:45 84 18 122/63 (82) 99 Room Air 03/17/20 13:30 90 18 115/56 (75) 100 Room Air 03/17/20 13:15 86 18 92/54 (67) 99 Room Air 03/17/20 13:00 36.9 98 18 99/52 (68) 100 Room Air 03/17/20 12:45 100 18 97/53 (68) 100 Room Air 03/17/20 12:30 Room Air 03/17/20 12:24 87 18 98/48 (65) 100 Room Air 03/17/20 12:22 82 18 99/50 (66) 100 Room Air 03/17/20 12:16 75 18 106/52 (70) 99 Room Air 03/17/20 12:15 75 18 118/55 (76) 100 Room Air 03/17/20 12:10 85 18 86/51 (63) 100 Non Rebreather 10.00 03/17/20 12:05 75 18 87/54 (65) 100 Non Rebreather 10.00 03/17/20 12:00 36.8 79 18 80/45 (57) 100 Non Rebreather 10.00 03/17/20 11:55 79 18 80/45 (57) 100 Non Rebreather 10.00 03/17/20 11:50 75 18 161/63 (95) 99 Non Rebreather 10.00 03/17/20 11:45 100 18 96/49 (65) 100 Non Rebreather 10.00 03/17/20 11:34 93 18 108/69 (82) 100 Non Rebreather 10.00 03/17/20 11:32 78 18 107/64 (78) 100 Non Rebreather 10.00 03/17/20 11:30 96 18 104/53 (70) 100 Room Air 03/17/20 11:20 96 18 114/56 (75) 100 Room Air 03/17/20 11:15 87 18 114/57 (76) 100 Room Air 03/17/20 11:13 83 18 113/65 (81) 100 Room Air 03/17/20 11:00 88 18 115/53 (73) 100 Room Air 03/17/20 10:45 141 18 99/58 (72) Room Air 03/17/20 10:30 18 98/64 (75) Room Air 03/17/20 10:15 77 16 105/51 (69) Room Air 03/17/20 10:00 80 16 109/58 (75) Room Air 03/17/20 09:45 77 16 108/56 (73) Room Air 03/17/20 09:30 36.6 82 16 108/58 (75) Room Air 03/17/20 09:15 78 16 93/52 (66) Room Air 03/17/20 09:00 74 16 101/55 (70) Room Air 03/17/20 08:45 75 16 105/54 (71) Room Air 03/17/20 08:30 69 16 120/72 (88) Room Air 03/17/20 08:15 81 16 118/58 (78) Room Air 03/17/20 08:00 37.1 87 16 107/63 (78) 98 Room Air 03/17/20 06:40 36.8 85 16 98 Room Air 03/17/20 06:40 36.8 85 16 124/79 (94) 98 Room Air Labs Laboratory Tests 03/17/20 06:50: White Blood Count 7.0, Red Blood Count 4.10, Hemoglobin 12.3, Hematocrit 37, Mean Corpuscular Volume 90, Mean Corpuscular Hemoglobin 30, Mean Corpuscular Hemoglobin Concent 33, Red Cell Distribution Width 12.9, Platelet Count 222, Mean Platelet Volume 11.7, Immature Granulocyte % (Auto) 0, Neutrophils (%) (Auto) 79H, Lymphocytes (%) (Auto) 13, Monocytes (%) (Auto) 7, Eosinophils (%) (Auto) 1, Basophils (%) (Auto) 0, Neutrophils # (Auto) 5.5, Lymphocytes # (Auto) 0.9L, Monocytes # (Auto) 0.5, Eosinophils # (Auto) 0.1, Basophils # (Auto) 0.0, Immature Granulocyte # (Auto) 0.0, Urine Color YELLOW, Urine Clarity SL CLOUDY, Urine pH 6.5, Urine Specific Donora 1.020, Urine Protein NEGATIVE, Urine Glucose (UA) NEGATIVE, Urine Ketones NEGATIVE, Urine Nitrite NEGATIVE, Urine Bilirubin NEGATIVE, Urine Urobilinogen 1.0, Urine Leukocyte Esterase TRACEH, Urine RBC (Auto) NEGATIVE, Urine RBC NONE, Urine WBC 2-5, Urine Squamous Epithelial Cells 10-25H, Urine Crystals NONE, Urine Bacteria MODERATEH, Urine Casts NONE, Urine Mucus NEGATIVE, Urine Culture Indicated YES CECE PETERSON MD Mar 17, 2020 15:20
--- NOTE | 2020-03-17 15:30 | NUR ---
ffu/0 with lt rubra noted, no clots expressed. vss 1544 ffu/0 with lt rubra noted, no clots expressed. sprite with ice to bedside table. pt . 1559 ff/0 with lt rubra noted, no clots expressed.
--- NOTE | 2020-03-17 15:35 | NUR ---
epidural catheter capped. plan of care reviewed with pt regarding need for catheter to remain in place for 24hours. pt verbalized understanding.
[2020-03-17] MEDS: CATHETER FLUSH 10 ML SYR IV SCH ×2 (15:43→23:19)
--- NOTE | 2020-03-17 17:15 | NUR ---
pericare pad changed. gown on. ffu/0 with mod rubra noted, no clots expressed. pt assisted to wheelchair and transferred to room 312 . Assisted to bathroom, void, pericare/pad changed. To bed on own with steady gait.
--- NOTE | 2020-03-17 21:27 | NUR ---
Pt up shower and resting in bed with no concerns at this time.
[2020-03-17] MEDS: DOCUSATE SODIUM 100 MG (COLACE) CAP PO SCH (22:47)
[2020-03-17] MEDS ORDERED: HYDROcodone/APAP 5 MG/325 MG (LORTAB) TAB ONE (23:02)
[2020-03-17] MEDS: HYDROcodone/APAP 5 MG/325 MG (LORTAB) TAB PO PRN (23:05)
--- NOTE | 2020-03-17 23:21 | NUR ---
Pt started co headache an hour previous, Motrin given with little relief, Howard López CRNA contacted and order for lortab 5 mg Q4 along with increase in hydration, rest and caffeine.
[2020-03-18] MEDS: HYDROcodone/APAP 5 MG/325 MG (LORTAB) TAB PO PRN ×2 (03:09→09:07)
[2020-03-18 03:14] VITALS: BP 101/58
[2020-03-18] MEDS: IBUPROFEN 600 MG (MOTRIN) TAB PO SCH ×2 (05:36→12:14)
--- NOTE | 2020-03-18 05:44 | NUR ---
Pt took motrin 600 mg and stated that headache is better but she is having pain in the neck and shoulder blade area. Pt will call if laying flat and rest does not help. Warm blanket to the area and bed lowered.
[2020-03-18] MEDS: CATHETER FLUSH 10 ML SYR IV SCH (06:31)
[2020-03-18 07:21] LABS: BASOPHILS % (AUTO) 0 % (0-10); EOSINOPHILS # (AUTO) 0.1 10^3/uL (0.0-0.3); EOSINOPHILS % (AUTO) 1 % (0-10); HEMATOCRIT 32 % (35-52); HEMOGLOBIN 10.3 g/dL (11.5-16.0); LYMPHOCYTES % (AUTO) 11 % (12-44); MEAN CORPUSCULAR HEMOGLOBIN 30 pg (25-34); MEAN CORPUSCULAR HGB CONC 32 g/dL (32-36); MEAN CORPUSCULAR VOLUME 94 fL (80-99); MEAN PLATELET VOLUME 12.3 fL (9.0-12.2); MONOCYTES # (AUTO) 0.5 10^3/uL (0.0-1.0); MONOCYTES % (AUTO) 6 % (0-12); NEUTROPHILS # (AUTO) 7.7 10^3/uL (1.8-7.8); NEUTROPHILS % (AUTO) 81 % (42-75); PLATELET COUNT 176 10^3/uL (130-400); WHITE BLOOD COUNT 9.4 10^3/uL (4.3-11.0)
--- NOTE | 2020-03-18 08:40 | NUR ---
PT PLACED ON JAMIR LIGHT WHILE THIS RN IN ANOTHER ROOM. STATING SHE "CAN'T TAKE THE PAIN ANYMORE IN HER NECK AND HEAD."
--- NOTE | 2020-03-18 08:45 | NUR ---
ROSA YBARRA OPTOMETRIST OWNER NOTIFIED BY BAO HERRERA RN OF PT'S REQUEST FOR INTERVENTION SOON POSSIBLE R/T PAIN.
[2020-03-18 09:00] VITALS: BP 104/51
--- NOTE | 2020-03-18 09:00 | NUR ---
A.M. ASSESSMENT COMPLETED. VSS. PT CONTINUES TO HAVE SEVERE HEADACHE, NECK PAIN, AND LOW BACK PAIN. EPIDURAL REMAINS IN PLACE. ANESTHESIA PLANNING TO PULL CATHETER AND POSSIBLE DO BLOOD PATCH AROUND NOON. INFANT REMAINS IN ROOM. S.O. ASSISTING WITH CARE.
[2020-03-18] MEDS: DOCUSATE SODIUM 100 MG (COLACE) CAP PO SCH (09:07)
--- NOTE | 2020-03-18 09:07 | NUR ---
LORTAB 5/325 P.O. FOR C/O NECK PAIN.
--- NOTE | 2020-03-18 09:40 | NUR ---
0940 PT TO ROOM 308 FOR PROCEDURE VIA W/C ACCOMPANIED BY THIS RN. PT HAS BEEN LYING DOWN AND GETTING UP INCREASING PAIN AGAIN TO 8/10. ANESTHESIA IN ROOM. 0944 UP TO THE SIDE OF THE BED. 1000 EPIDURAL CATHETER D/C'ED BY ROSA YBARRA CRNA. 1006 AREA PREPPED. LOCAL GIVEN TO BACK BY RICHARD. 1008 SITE OBTAINED BY RICHARD. 1009 SALINE LOCK STARTED BY SRNA IN LEFT HAND WITH A #22G INTRACATH. BLOOD DRAWN FROM IV SITE. 1010 TOTAL OF 18 MLS OF BLOOD INJECTED TO EPIDURAL SPACE. 1012 PROCEDURE COMPLETED. 1015 VSS. 1020 RETURNED TO ROOM 312 VIS W/C IN STABLE CONDITION. RATING PAIN 3/10. ASSISTED TO BED IN SUPINE POSITION. 1022 DR. RICHARDSON IN TO SEE PT.
--- NOTE | 2020-03-18 10:27 | Progress Note ---
Standard Progress Note Progress Notes/Assess & Plan Date Seen by a Provider: Mar 18, 2020 Time Seen by a Provider: 10:23 Progress/Assessment & Plan This patient is a patient of Dr. Hui is delivered by vaginal delivery yesterday. She had an epidural which apparently has resulted in a spinal he adache. She is just now received a blood patch from anesthesia. Preliminary indication is that she seems somewhat better. She is tolerating oral intake and other than her severe headache with ambulation she ambulates okay she is voiding okay Per Dr. Hui plan is for discharge home when patient is ready Vital Signs Date Time Temp Pulse Resp B/P (MAP) Pulse Ox O2 Delivery O2 Flow Rate FiO2 03/18/20 03:14 36.6 64 18 101/58 (72) 99 Room Air 03/17/20 23:23 36.5 77 18 114/55 (74) 99 Room Air 03/17/20 20:30 36.9 67 18 104/58 (73) Room Air 03/17/20 16:30 75 18 118/64 (82) Room Air 03/17/20 15:59 82 18 116/59 (78) Room Air 03/17/20 15:44 84 18 127/63 (84) Room Air 03/17/20 15:30 37.1 91 18 119/60 (79) Room Air 03/17/20 15:15 37.4 90 18 123/55 (77) Room Air 03/17/20 15:07 97 18 136/95 (109) 100 Room Air 03/17/20 15:00 102 18 114/75 (88) 99 Room Air 03/17/20 14:45 92 18 123/77 (92) 100 Room Air 03/17/20 14:40 82 18 121/56 (77) 99 Room Air 03/17/20 14:30 86 18 119/75 (90) 100 Room Air 03/17/20 14:25 71 18 116/71 (86) 99 Room Air 03/17/20 14:20 82 18 120/73 (89) 100 Room Air 03/17/20 14:15 80 18 158/64 (95) 100 Room Air 03/17/20 14:10 83 18 132/63 (86) 100 Room Air 03/17/20 14:00 81 18 119/59 (79) 100 Room Air 03/17/20 13:45 84 18 122/63 (82) 99 Room Air 03/17/20 13:30 90 18 115/56 (75) 100 Room Air 03/17/20 13:15 86 18 92/54 (67) 99 Room Air 03/17/20 13:00 36.9 98 18 99/52 (68) 100 Room Air 03/17/20 12:45 100 18 97/53 (68) 100 Room Air 03/17/20 12:30 Room Air 03/17/20 12:24 87 18 98/48 (65) 100 Room Air 03/17/20 12:22 82 18 99/50 (66) 100 Room Air 03/17/20 12:16 75 18 106/52 (70) 99 Room Air 03/17/20 12:15 75 18 118/55 (76) 100 Room Air 03/17/20 12:10 85 18 86/51 (63) 100 Non Rebreather 10.00 03/17/20 12:05 75 18 87/54 (65) 100 Non Rebreather 10.00 03/17/20 12:00 36.8 79 18 80/45 (57) 100 Non Rebreather 10.00 03/17/20 11:55 79 18 80/45 (57) 100 Non Rebreather 10.00 03/17/20 11:50 75 18 161/63 (95) 99 Non Rebreather 10.00 03/17/20 11:45 100 18 96/49 (65) 100 Non Rebreather 10.00 03/17/20 11:34 93 18 108/69 (82) 100 Non Rebreather 10.00 03/17/20 11:32 78 18 107/64 (78) 100 Non Rebreather 10.00 03/17/20 11:30 96 18 104/53 (70) 100 Room Air 03/17/20 11:20 96 18 114/56 (75) 100 Room Air 03/17/20 11:15 87 18 114/57 (76) 100 Room Air 03/17/20 11:13 83 18 113/65 (81) 100 Room Air 03/17/20 11:00 88 18 115/53 (73) 100 Room Air 03/17/20 10:45 141 18 99/58 (72) Room Air 03/17/20 10:30 18 98/64 (75) Room Air I & O 03/18/20 07:00 Intake Total 2829.6 ml Balance 2829.6 ml Vital signs are stable. Patient is afebrile. Laboratory Tests Test 03/18/20 06:52 Range/Units White Blood Count 9.4 4.3-11.0 10^3/uL Red Blood Count 3.40 L 3.80-5.11 10^6/uL Hemoglobin 10.3 L 11.5-16.0 g/dL Hematocrit 32 L 35-52 % Mean Corpuscular Volume 94 80-99 fL Mean Corpuscular Hemoglobin 30 25-34 pg Mean Corpuscular Hemoglobin Concent 32 32-36 g/dL Red Cell Distribution Width 13.1 10.0-14.5 % Platelet Count 176 130-400 10^3/uL Mean Platelet Volume 12.3 H 9.0-12.2 fL Immature Granulocyte % (Auto) 1 % Neutrophils (%) (Auto) 81 H 42-75 % Lymphocytes (%) (Auto) 11 L 12-44 % Monocytes (%) (Auto) 6 0-12 % Eosinophils (%) (Auto) 1 0-10 % Basophils (%) (Auto) 0 0-10 % Neutrophils # (Auto) 7.7 1.8-7.8 10^3/uL Lymphocytes # (Auto) 1.0 1.0-4.0 10^3/uL Monocytes # (Auto) 0.5 0.0-1.0 10^3/uL Eosinophils # (Auto) 0.1 0.0-0.3 10^3/uL Basophils # (Auto) 0.0 0.0-0.1 10^3/uL Immature Granulocyte # (Auto) 0.1 0.0-0.1 10^3/uL Hemoglobin is normal The abdomen is benign Extremities show no clubbing or cyanosis Pelvic exam is deferred Assessment and plan day #1 status post vaginal delivery per Dr. Hui. Patient currently is experiencing spinal headache and has received a blood patch plan is to allow discharge home when patient is requesting such Final Diagnosis Spontaneous vaginal delivery EDWARD RICHARDSON MD Mar 18, 2020 10:27
--- NOTE | 2020-03-18 10:35 | Anesthesia-Regional Post-Op ---
Regional Patient Condition Mental Status: Alert, Oriented x3 Circulation: Same as Pre-Op Headache: Present Sensation: Full Recovery Motor Block: Absent Post Op Complications Complications Pt developed at [facility] after her epidural. Blood patch was completed this morning with improvement in her H/A almost immediately. Dr. Luna was advised. Pt will lay supine for 30 min and will f/u as needed. VSS. Pt was able to ambulate after blood patch to get to w/c and had full motor and sensation. Follow Up Care/Instructions Patient Instructions None needed. Anesthesia/Patient Condition . D/C home per [facility] Criteria: ROSA Gavin CRNA Mar 18, 2020 10:35
--- NOTE | 2020-03-18 11:00 | NUR ---
CONTINUES TO REST IN BED. STATES PAIN MINIMAL TO 2/10. S.O. AT BEDSIDE CARING FOR INFANT.
[2020-03-18 12:15] VITALS: BP 105/53
--- NOTE | 2020-03-18 12:15 | NUR ---
VSS. PT HAS BEEN UP TO THE BATHROOM. RATES PAIN 2/10 MOSTLY R/T LOW BACK.
--- NOTE | 2020-03-18 14:45 | NUR ---
RESTING IN BED WITH HOB UP. STATES NECK/HEAD PAIN IS GONE. LOW BACK PAIN IS SORE 3-08/05. PLANNING TO GET UP TO SHOWER SOON.
--- NOTE | 2020-03-18 15:30 | NUR ---
SHOWERED WITHOUT PROBLEMS. STATES IT FELT GOOD TO MUSCLES IN NECK AND BACK.
[2020-03-18 16:35] VITALS: BP 120/59
--- NOTE | 2020-03-18 17:15 | NUR ---
DISCHARGE INSTRUCTIONS REVIEWED WITH COPY TO PT. STATES UNDERSTANDING OF ALL INSTRUCTIONS AND NEED TO F/U SCHEDULED AND NEEDED.
[2020-03-18 17:25] VITALS: BP 120/59
--- NOTE | 2020-03-18 17:25 | NUR ---
DISMISSED FROM [facility] VIA W/C WITH IN STABLE CONDITION TO [facility] BY MADI FISCHER.
--- NOTE | 2020-03-19 08:03 | Anesthesia-Regional Post-Op ---
Regional Patient Condition Mental Status: Alert, Oriented x3 Circulation: Same as Pre-Op Headache: Absent Sensation: Full Recovery Motor Block: Absent Post Op Complications Complications None Follow Up Care/Instructions Patient Instructions None needed. Anesthesia/Patient Condition Patient is doing well, no complaints, stable vital signs.. No complications reported per nursing. Pt had improvement in headache after blood patch and wished to be d/c. D/C home per [facility] Criteria: Yes ROSA YBARRA CRNA Mar 19, 2020 08:03
== END 2020-03-18 17:25 | disposition home or self-care (01) | DRG 807 ==
LOC: LDRP 06:14
PROVIDERS: ADMIT Family Medicine; ATTEND Family Medicine
PROC: 10E0XZZ Delivery of Products of Conception, External Approach (ICD-10-PCS; principal; 2020-03-17)
PROC: 3E033VJ Introduction of Other Hormone into Peripheral Vein, Percutaneous Approach (ICD-10-PCS; 2020-03-17)
PROC: 10907ZC Drainage of Amniotic Fluid, Therapeutic from Products of Conception, Via Natural or Artificial Opening (ICD-10-PCS; 2020-03-17)
DX: O99.824 Streptococcus B carrier state complicating childbirth (principal); Z37.0 Single live birth; Z3A.39 39 weeks gestation of pregnancy; O69.81X0 Labor and delivery complicated by cord around neck, without compression, not applicable or unspecified
CPT/HCPCS: 36415; 81000; 85025; 86780; 86850; 86900; 86901; 87088

== ENCOUNTER → 2020-08-07 | Outpatient (CLI) | payer MEDICAID | LOC: LABNPT 14:59 | PROVIDERS: ATTEND Family Medicine | DX: Z01.419 Encounter for gynecological examination (general) (routine) without abnormal findings (principal) | CPT/HCPCS: 87491 ==

== ENCOUNTER → 2020-09-19 | Outpatient (CLI) | payer MEDICAID | LOC: LAB FS 10:40 | PROVIDERS: ATTEND Anesthesiology | DX: Z01.812 Encounter for preprocedural laboratory examination (principal); Z20.822 Contact with and (suspected) exposure to COVID-19 | CPT/HCPCS: 87635 ==